=== PATIENT | male | born 1985 | race Asian ===

== ENCOUNTER 2020-04-21 17:58 | Emergency (ER) | payer BC, SELFPAY ==
--- NOTE | ~2020-04-21 | XR_ITS ---
EXAMINATION: XR tibia fibula LT 2V DATE: 04/21/2020 19:12 INDICATION: Left lower leg injury and pain. TECHNIQUE: 2 views of left tibia and fibula were obtained. COMPARISON: None. FINDINGS: Bone alignment is normal. No fracture. Joint spaces are well maintained. IMPRESSION: 1. Normal left tibia and fibula. Reviewed, dictated and finalized at location A.
--- NOTE | ~2020-04-21 | XR_ITS ---
EXAMINATION: XR ankle LT min 3V DATE: 04/21/2020 19:12 INDICATION: Left ankle injury and pain. TECHNIQUE: 4 views of left ankle were obtained. COMPARISON: None. FINDINGS: Bone alignment is normal. No fracture. Joint spaces are well maintained. IMPRESSION: 1. No fracture. Reviewed, dictated and finalized at location A. IMPRESSION: 1. No fracture.
[2020-04-21 18:02] VITALS: BP 121/75; PULSE 110; RESP 19; TEMP 36.3; O2SAT 100
--- NOTE | 2020-04-21 19:00 | PC.NURSE ---
Patient refused ice pack
[2020-04-21] MEDS: KETOROLAC (*BKC) 60 MG/2 ML VIAL IM (19:19)
--- NOTE | 2020-04-21 19:47 | ED.LOWEXIN ---
HPI - Extremity Injury (Lower) General Chief Complaint: Extremity Injury, Lower Stated Complaint: left leg injury Time Seen by Provider: 04/21/20 18:48 Source: patient Mode of arrival: wheelchair Limitations: no limitations History of Present Illness HPI Narrative: This is a 34 year old male that presents to the ER for left posterior ankle pain follow an injury just prior to arrival. Reports he was playing soccer and went to [facility] the [place]. Reports he felt a pop in the back of his left ankle. Reports pain and swelling. Reports decreased ROM. Denies numbness. Related Data Home Medications Medication Instructions Recorded Confirmed No Home Medications 04/21/20 04/21/20 Allergies Allergy/AdvReac Type Severity Reaction Status Date / Time sulfamethoxazole Allergy Unknown Verified 04/21/20 18:53 [From ] trimethoprim [From ] Allergy Unknown Verified 04/21/20 18:53 Review of Systems Review of Systems: Narrative: CONSTITUTIONAL: Denies fever MUSCULOSKELETAL: Reports joint pain, and myalgia. NEUROLOGIC: Denies numbness All systems reviewed & are unremarkable except as noted in HPI and below PMFSH Past Medical History Medical History (Updated 04/21/20 @ 19:54 by Joy Case PA-C) No active medical problems Social History Social History (Updated 04/21/20 @ 19:50 by Joy Case PA-C) Substance use: current Substance use type: marijuana Gender identity (if verbalized by the patient): Male Exam Narrative: Exam Narrative: GENERAL: Well-appearing, well-nourished, and in no acute distress. HEAD: Normocephalic, atraumatic. EYES: EOMI. EXTREMITIES: Decreased ROM in the left ankle with obvious deformity noted at the Achilles tendon. Appears to be partially intact still. Small amount of movement with Chavez test. Normal DP pulses SKIN: Warm, dry, no rash. NEURO: No focal deficits. Alert and oriented x3. PSYCH: Normal mood and affect Course Consultations Consultation #1: Spoke with Dr. Fields about patient and work-up will follow-up in clinic. Reports patient can just be given crutches and does not need to be placed in a splint. Date: 04/21/20 Time: 19:53 Vital Signs Vital signs: Vital Signs Temperature 97.3 F L 04/21/20 18:02 Pulse Rate 110 H 04/21/20 18:02 Respiratory Rate 04/21/20 18:02 Blood Pressure 121/75 04/21/20 18:02 Pulse Oximetry 100 04/21/20 18:02 Temperature 97.3 F L 04/21/20 18:02 Pulse Rate 110 H 04/21/20 18:02 Respiratory Rate 04/21/20 18:02 Blood Pressure 121/75 04/21/20 18:02 Pulse Oximetry 100 04/21/20 18:02 MDM - Extremity Injury (Lower) MDM Narrative Medical decision making narrative: Patient presents emergency department for left ankle injury today. Left ankle and tib-fib x-rays are without acute findings. Patient with obvious deformity of the Achilles tendon on the left. Appears to be partially intact still. Small amount of movement with the Chavez test. Spoke with Dr. Fields about patient and work-up will follow-up in clinic. Reports patient can just be given crutches and does not need to be placed in a splint. Patient was placed in an Law wrap for comfort. He is to follow-up with orthopedics. He was given warnings to return to the ER Imaging Data Radiologist's impression: ITS Impressions Ankle X-Ray 04/21/20 19:13 IMPRESSION: 1. No fracture. Tibia/Fibula X-Ray 04/21/20 19:13 IMPRESSION: 1. Normal left tibia and fibula. Critical Care Time Critical Care Time Critical Care Time: No Discharge Plan Discharge Clinical Impression: Partial rupture of left Achilles tendon Patient Disposition: Home, Self-Care Condition: Stable Instructions: Achilles Tendon Rupture (ED) Additional Instructions: Return the emergency department if you experience fever, redness and swelling of your leg, or any other symptoms that are concerning to you Rest. Elevate. Ice to the area. Tyl
[2020-04-21 20:55] VITALS: BP 112/63; PULSE 90; RESP 18; TEMP 36.7; O2SAT 98
== END 2020-04-21 20:55 | disposition home or self-care (01) ==
PROVIDERS: Emergency Provider Emergency Medicine; PCP Family Medicine
DX: S86.012A Strain of left Achilles tendon, initial encounter (principal); X50.9XXA Other and unspecified overexertion or strenuous movements or postures, initial encounter; Y93.66 Activity, soccer
CPT/HCPCS: 73590; 73610; 96372; 99284; J1885

== ENCOUNTER 2020-04-24 02:21 | Outpatient (CLI) | payer BC, SELFPAY ==
[2020-04-24 18:39] LABS: SARS-CoV-2 RNA PCR Negative
== END 2020-04-24 02:22 | disposition home or self-care (01) ==
LOC: ANHCOVIDDT 02:21
PROVIDERS: PCP Family Medicine; Visit Provider Orthopaedic Surgery
DX: Z01.812 Encounter for preprocedural laboratory examination (principal); Z11.59 Encounter for screening for other viral diseases
CPT/HCPCS: 87635; C9803; U0003

== ENCOUNTER 2020-04-25 02:01 | Day surgery (SDC) | payer BC, SELFPAY ==
[2020-04-23 15:10] VITALS: BMI 25.0
[2020-04-25] VITALS (7 sets, daily range): BP systolic 108–122; BP diastolic 56–90; PULSE 65–88; RESP 10–18; TEMP 36.3–36.9; O2SAT 98–100
--- NOTE | 2020-04-25 10:09 | WPDANESEPPF ---
Anes - Initial Pre Proc Eval Procedure: Operation Date: 04/25/20 13:00 Proposed Procedures p Left Achilles Tendon Repair - Abdoulaye Fields MD <Varinder Webb MD - Last Filed: 04/26/20 09:17> Date/Time: 04/25/20 10:09 <Varinder Webb MD - Last Filed: 04/26/20 09:17> Surgeon: Abdoulaye Fields MD <Varinder Webb MD - Last Filed: 04/26/20 09:17> Pre Op Diagnosis: Left Achilles Tendon Rupture <Varinder Webb MD - Last Filed: 04/26/20 09:17> Patient Data Age: 34 Gender: M Height: 1.65 m Weight: 68.04 kg <Varinder Webb MD - Last Filed: 04/26/20 09:17> Allergies Allergy/AdvReac Type Severity Reaction Status Date / Time sulfamethoxazole Allergy Unknown- Verified 04/25/20 12:20 [From ] OCCURED CHILD trimethoprim [From ] Allergy Unknown- Verified 04/25/20 12:20 OCCURED CHILD <Varinder Webb MD - Last Filed: 04/26/20 09:17> Home Medications Medication Instructions Recorded Confirmed Type acetaminophen [Tylenol] 650 mg PO DIRECTED PRN 04/23/20 04/25/20 History tapentadol [Nucynta] 50 mg PO Q6H PRN #10 tablet 04/25/20 Rx <Varinder Webb MD - Last Filed: 04/26/20 09:17> Patient hx anesthesia problems: none <Jorge Rodriguez MD - Last Filed: 04/25/20 12:01> Family hx anesthesia problems: none <Jorge Rodriguez MD - Last Filed: 04/25/20 12:01> [facility] Past Medical History Medical History: Medical History BMI 25.0-25.9,adult Hypercholesterolemia No active medical problems <Varinder Webb MD - Last Filed: 04/26/20 09:17> Social History Social History: Social History Smoking status: Never smoker Alcohol intake: current Drinks per week: 1 Substance use: current Substance use type: marijuana Last use: 04/23/20 Gender identity (if verbalized by the patient): Male Spiritual care concerns: No <Varinder Webb MD - Last Filed: 04/26/20 09:17> Anes - Eval Final PreProcedure Day of Procedure 04/25/20 10:09 <Varinder Webb MD - Last Filed: 04/26/20 09:17> Patient weight: normal <Varinder Webb MD - Last Filed: 04/26/20 09:17> Heart: regular rate and rhythm <Varinder Webb MD - Last Filed: 04/26/20 09:17> Lungs: clear to auscultation and normal air movement <Varinder Webb MD - Last Filed: 04/26/20 09:17> Airway: Mallampati scale class II <Varinder Webb MD - Last Filed: 04/26/20 09:17> Neurological: alert and oriented <Varinder Webb MD - Last Filed: 04/26/20 09:17> Last oral intake: >/= 8 hours <Varinder Webb MD - Last Filed: 04/26/20 09:17> ASA classification: II <Varinder Webb MD - Last Filed: 04/26/20 09:17> Emergent: no <Varinder Webb MD - Last Filed: 04/26/20 09:17> Anesthetic plan: proceed <Varinder Webb MD - Last Filed: 04/26/20 09:17> Anesthesia type and monitoring: general LMA and ETT <Varinder Webb MD - Last Filed: 04/26/20 09:17> Informed Consent: The patient's anesthetic plan and its attendant risks and benefits were discussed with the patient/family/POA. Questions were solicited and answers provided to the satisfaction of the patient/family/POA. <Varinder Webb MD - Last Filed: 04/26/20 09:17>
--- NOTE | 2020-04-25 11:25 | WPDANESEPPF ---
Anes - Initial Pre Proc Eval Procedure: Operation Date: 04/25/20 13:00 Proposed Procedures p Left Achilles Tendon Repair - Abdoulaye Fields MD Date/Time: 04/25/20 11:25 Surgeon: Abdoulaye Fields MD Pre Op Diagnosis: Left Achilles Tendon Rupture Patient Data Age: 34 Gender: M Height: 5 ft 5 in Weight: 68.04 kg Allergies Allergy/AdvReac Type Severity Reaction Status Date / Time sulfamethoxazole Allergy Unknown- Verified 04/23/20 15:11 [From ] OCCURED CHILD trimethoprim [From ] Allergy Unknown- Verified 04/23/20 15:11 OCCURED CHILD Home Medications Medication Instructions Recorded Confirmed Type acetaminophen [Tylenol] 650 mg PO DIRECTED PRN 04/23/20 04/23/20 History ibuprofen 600 mg PO Q6H PRN 04/23/20 04/23/20 History Patient hx anesthesia problems: none Family hx anesthesia problems: none PMFSH Past Medical History Medical History BMI 25.0-25.9,adult Hypercholesterolemia No active medical problems Social History Social History Smoking status: Never smoker Alcohol intake: current Drinks per week: 1 Substance use: current Substance use type: marijuana Last use: 04/23/20 Gender identity (if verbalized by the patient): Male Spiritual care concerns: No Anes - Eval Final PreProcedure Day of Procedure 04/25/20 11:25 Patient weight: normal Heart: regular rate and rhythm Lungs: clear to auscultation Airway: Mallampati scale class II Neurological: alert and oriented Last oral intake: >/= 8 hours ASA classification: I Emergent: no Anesthetic plan: proceed Anesthesia type and monitoring: general (lma vs ett) LMA and ETT and standard monitoring Informed Consent: The patient's anesthetic plan and its attendant risks and benefits were discussed with the patient/family/POA. Questions were solicited and answers provided to the satisfaction of the patient/family/POA.
[2020-04-25] MEDS: LACTATED RINGERS 1,000 ML 30 ML IV CONT ×2 (11:30→14:32)
--- NOTE | 2020-04-25 12:01 | WPDHPUPDATE1 ---
History and Physical Update Update Date/Time: 04/25/20 12:01 History and Physical has been reviewed, including an updated exam of the patient. There are NO changes in the patient's condition. Risks, benefits, and alternatives have been discussed and questions answered. Patient agrees to proceed with procedure.
[2020-04-25] MEDS: KETOROLAC 15 MG/ML VIAL (*BKC) IV PUSH ×2 (12:25→15:46)
[2020-04-25] MEDS: ACETAMINOPHEN 500 MG TABLET 1000 MG PO (12:25)
--- NOTE | 2020-04-25 12:32 | WPDANESPNB ---
Anes - Peripheral Nerve Block Date/Time: 04/25/20 12:32 I have discussed with the patient/family/POA the placement of a peripheral nerve block for post-operative pain management, including associated risks, benefits, complications, and side effects. Alternative methods of post-operative analgesia were detailed. Questions were solicited and answers provided to the satisfaction of the patient/family/POA. Time-Out: A pre-procedural Time-Out was completed immediately before starting the procedure and confirmed: Patient Identification, Site, Procedure, Patient Position and the Availability of Requisite Equipment. Clinical Indications: Acute post-operative pain management requested by the operative surgeon. Nerve Block Insertion Note Anes-nerve block: posterior fossa sciatic left Patient position: supine Skin prep: chlorhexidine Needle: 22 gauge, stimulating, insulated echogenic needle. Needle length: 80 mm Technique: nerve stimulation lost at (mA) (0.21) Technique comment: propofol 120mg Injectate: bupivacaine 0.5% with epi 5 mcg/ml (30ml) and dexamethasone (mg) (4) Observations: tolerated well Complications: none Procedure start time:: 1222 Procedure end time:: 1228
[2020-04-25] MEDS: ceFAZolin 2 GM/D5W 50 ML 2 GM/50 ML BAG IVPB (13:10)
--- NOTE | 2020-04-25 14:43 | PM.PROC ---
Procedure Note - Detailed Date of procedure: 04/25/20 Pre-op diagnosis: Left Achilles Tendon Rupture Post-op diagnosis: same Procedure performed: open repair left Achilles tendon rupture Description of procedure: the patient was identified and proper site identified. In the preop holding area, the anesthesia team performed a left lower leg block. He was then taken to the operating room and after general anesthetic induction and intubation was transferred in a prone position to the OR table taking care to properly pad and position is torso and extremities. A nonsterile tourniquet was placed high on the left thigh. Left lower extremity was prepped and draped in usual sterile fashion. Extremity was exsanguinated tourniquet was inflated to 300 mmHg remaining up for about 47 minutes. A transverse incision was made over the defect in the left Achilles tendon. Subcutaneous tissue was sharply dissected down to the paratenon which was divided transversely in line with the incision. Proximal stump of the Achilles tendon was identified and then using the jig for the PARS device the three proximal sutures were passed. Using the same technique three distal sutures were passed. The foot was then plantar flexed and the tendon edges brought into proximity allowing for the sutures to be tied. This gave a nice solid repair of the Achilles rupture. Wound was irrigated. Paratenon was reapproximated with four 0 Monocryl suture skin edges reapproximated with three 0 Prolene and Steri-Strips. Sterile dressing was applied. Tourniquet is released. A well-padded short-leg splint was applied with the patient's foot and ankle in equinus position. He tolerated procedure well. Estimated blood loss was negligible. He received perioperative antibiotics. He was returned to a supine position, awakened, extubated and taken to recovery area in stable condition. There were no known intraoperative complications. He received perioperative antibiotics. Anesthesia: IRINA Surgeon: Abdoulaye Fields MD Construction Assistant: Roel Paredes Estimated blood loss (mL): 1 Tourniquet time (min): 47 Drains: No Packing: No Pathology: none sent Complications: No immediate complications Condition: stable Disposition: PACU
== END 2020-04-25 16:30 | disposition home or self-care (01) ==
PROVIDERS: PCP Family Medicine; Visit Provider Orthopaedic Surgery
PROC: (CPT 27650; principal; 2020-04-25 13:00)
DX: S86.012A Strain of left Achilles tendon, initial encounter (principal); G89.18 Other acute postprocedural pain; X50.0XXA Overexertion from strenuous movement or load, initial encounter; Y93.66 Activity, soccer; F12.90 Cannabis use, unspecified, uncomplicated
CPT/HCPCS: 27650; 64445; A9270; J0330; J0690; J1100; J1885; J2250; J2405; J2704; J3010; J7120